=== PATIENT | female | born 1995 | race African-American/Black ===

== ENCOUNTER 2021-04-06 16:12 | Emergency (ER) | payer MEDICAID ==
[~2021-04-06] VITALS: Ht 165.1 cm; Wt 93.0 kg
[2021-04-06] MEDS ORDERED: IBUPROFEN 600MG TABLET PO ONE (20:45)
[2021-04-06] MEDS ORDERED: IBUP-2029 MT (22:21)
[2021-04-06] MEDS ORDERED: KETOROLAC 60MG/2ML VIAL IM ONE (22:30)
[2021-04-06 23:05] VITALS: BP 145/79
== END 2021-04-07 00:23 | disposition home or self-care (01) ==
LOC: ER 16:12
DX: S82.831A Other fracture of upper and lower end of right fibula, initial encounter for closed fracture (principal); I10 Essential (primary) hypertension; Z98.890 Other specified postprocedural states; Z91.018 Allergy to other foods; W01.0XXA Fall on same level from slipping, tripping and stumbling without subsequent striking against object, initial encounter; Y93.89 Activity, other specified; Y92.89 Other specified places as the place of occurrence of the external cause
CPT/HCPCS: 29515; 73610; 96372; 99283; J1885